=== PATIENT | male | born 1960 | race Caucasian/White ===

== ENCOUNTER 2018-07-17 09:04 | Emergency (ER) | payer BC ==
[~2018-07-17] VITALS: Ht 175.3 cm; Wt 68.2 kg
[~2018-07-17 09:04] MED LIST: MOTRIN 200200 MG/TAB PO; TYLENOL 650MG650 M2 PO
[2018-07-17 09:08] VITALS: TEMP 96.5
[2018-07-17 09:30] LABS: BASO % 0.5 % (0.0-2.0); EOS # 0.2 (0.0-0.7); EOS % 3.6 % (0-4.0); GRAN # 2.5 (1.4-6.5); GRAN % 41.3 % (42.2-75.2); HEMATOCRIT 45.4 % (42.0-52.0); HEMOGLOBIN 15.7 g/dl (13.5-18.0); LYMPH # 2.9 (1.2-3.4); LYMPH % 47.6 % (20.0-51.0); MEAN CELL VOLUME 91 fl (80.0-100.0); MEAN CORPUSCULAR HEMOGLOBIN 32 pg (27.0-31.0); MEAN CORPUSCULAR HGB CONC 35 g/dl (33.0-37.0); MEAN PLATELET VOLUME 10.4 fl (7.4-10.4); MONO # 0.4 (0.1-0.6); MONO % 6.8 % (1.7-9.3); PLATELET COUNT 193 K/mm3 (130-400); RED BLOOD COUNT 4.97 M/mm3 (4.20-5.60); REDCELL DISTRIBUTION WIDTH-CV 12.1 % (11.5-14.5)
[2018-07-17 09:55] LABS: TROPONIN-I 0.014 ng/mL (0.000-0.034)
[2018-07-17 10:05] LABS: ALBUMIN 3.2 gm/dL (3.5-5.0); CREATININE, serum 0.98 mg/dL (0.66-1.25); INR 1.1 (0.8-3.0); POTASSIUM 4.2 mmol/L (3.4-5.0); TOTAL PROTEIN 6.2 gm/dL (6.4-8.2)
[2018-07-17 10:07] LABS: PARTIAL THROMBOPLASTIN TIME 32.4 SECONDS (26.0-37.0)
[2018-07-17 14:33] VITALS: BP 107/74; PULSE 72
== END 2018-07-17 13:55 | disposition other institution (70) ==
LOC: COL.ER 09:04
PROVIDERS: Emergency Medicine
DX: R07.89 Other chest pain (principal); K21.9 Gastro-esophageal reflux disease without esophagitis
CPT/HCPCS: J1265; J1644; J2250; J3010; J7030; Q9967

== ENCOUNTER 2018-08-23 14:54 | Outpatient (RCR) | payer BC | END 2018-08-28 09:33 | disposition home or self-care (01) | LOC: COL.CR 14:54 | DX: I21.4 Non-ST elevation (NSTEMI) myocardial infarction (principal) ==